=== PATIENT | male | born 1990 | race Caucasian/White ===

== ENCOUNTER 2021-08-05 14:51 | Emergency (ER) | payer SELFPAY ==
--- NOTE | 2021-08-05 14:52 | ED.DENTAL ---
HPI - Dental/Oral General Chief complaint: Dental/Oral Stated complaint: Tooth Pain Time Seen by Provider: 08/05/21 15:10 Source: patient and RN notes reviewed Mode of arrival: ambulatory Limitations: no limitations History of Present Illness HPI Narrative: 30-year-old male presents to the [facility] with complaints of right lower dental pain for the last few days. Has taken Tylenol and Motrin for pain. Poor dentition. MD Complaint: tooth pain Related Data Allergies Allergy/AdvReac Type Severity Reaction Status Date / Time amoxicillin Allergy Unknown Rash Verified 08/05/21 14:55 banana Allergy Unknown Other Verified 08/05/21 14:55 Penicillins Allergy Unknown Other Verified 08/05/21 14:55 tramadol Allergy Unknown Other Verified 08/05/21 14:55 Review of Systems Review of Systems: All systems reviewed & are unremarkable except as noted in HPI and below Constitutional: Constitutional: Reports no additional constitutional complaints, Denies chills and Denies fever(s) Eyes: Eyes: Reports no additional eye complaints ENT: Reports as per HPI Comments: Dental pain Cardiovascular: Cardiovascular: Reports no additional cardiovascular complaints, Denies chest pain and Denies dyspnea Respiratory: Respiratory: Reports no additional respiratory complaints, Denies cough and Denies dyspnea Musculoskeletal: Musculoskeletal: Reports no additional musculoskeletal complaints Integumentary/Breasts: Skin/Breast: Reports system reviewed and no additional complaints, except as docu Neurologic: Reports system reviewed and no additional complaints, except as documented Psychiatric: Psychiatric: Reports no additional psychiatric complaints Allergic/Immunologic: Allergic/Immunologic: Reports no additional allergic/immunologic complaints [facility] Past Medical History Medical History Postoperative ST elevation myocardial infarction (STEMI) involving left anterior descending (LAD) coronary artery Surgical History Surgical History No pertinent past surgical history Comments At the time of my signature, I reviewed and agree with the nursing past medical, surgical, social, and family history. There is no relevant family history pertinent to the patient complaint. Exam Const: General: healthy appearing, no acute distress and alert Nutritional Appearance: well nourished Orientation/consciousness: patient oriented x3 Limitations: no limitations HENMT: Head: normal to inspection Ears: external ears normal, TM's normal bilaterally and EAC's normal General nose exam: Normal external nose present and Normal nasal mucous membranes and turbinates present Mouth: Yes Normal oral and palatal mucosa present Teeth and gingiva: abnormal tooth and associated gingiva lower right tender, with associated gingival edema, enamel fractured and other; without associated gingival fluctuance, caries (Multiple through upper teeth with excess plaque) and poor dentition Throat: posterior oropharynx normal, tonsils normal and uvula midline Eyes: Conjunctivae: conjunctivae normal Pupils: Equal, round and reactive pupils present Neck: Neck: normal visual inspection, no lymphadenopathy and no meningeal signs Chest: Chest palpation & inspection: normal inspection of the chest Resp: Effort & Inspection: normal respiratory effort Auscultation: clear to auscultation bilaterally Cardio: Rate: regular rate Rhythm: regular rhythm Back/Spine/Pelvis: Back: no CVA tenderness Skin: General skin exam: normal color Rashes: no rashes Wounds: no wounds Neuro: General: patient oriented x3, moves all extremities, no meningeal signs and no focal motor deficits Cranial nerves: Yes Equal, round and reactive pupils present Speech: normal speech Gait exam (Neuro): Normal gait present Extrem: General: normal to inspection Psych: Appearance: grossly normal and well kempt Mental Sta
[2021-08-05 15:05] VITALS: BP 155/69; PULSE 109; RESP 18; TEMP 37.2; O2SAT 100
== END 2021-08-05 15:15 | disposition home or self-care (01) ==
PROVIDERS: Emergency Provider Nurse Practitioner
DX: K04.7 Periapical abscess without sinus (principal); K02.9 Dental caries, unspecified; I25.2 Old myocardial infarction
CPT/HCPCS: 99213; G0463